=== PATIENT | male | born 1980 | race Two or more races ===

== ENCOUNTER 2019-07-07 21:26 | Emergency (ER) | payer BC ==
[~2019-07-07] VITALS: Ht 180.3 cm; Wt 95.7 kg
== END 2019-07-07 23:26 | disposition home or self-care (01) ==
LOC: ER 21:26
DX: R21 Rash and other nonspecific skin eruption (principal)

== ENCOUNTER 2023-06-12 11:03 | Emergency (ER) | payer BC ==
[~2023-06-12] VITALS: Ht 177.8 cm; Wt 90.7 kg
== END 2023-06-12 16:31 | disposition home or self-care (01) ==
LOC: ER 11:03
PROVIDERS: Emergency Medicine
DX: J45.901 Unspecified asthma with (acute) exacerbation (principal); R11.10 Vomiting, unspecified; Z20.822 Contact with and (suspected) exposure to COVID-19